=== PATIENT | female | born 1995 | race Two or more races ===

== ENCOUNTER 2024-05-24 12:59 | Emergency (ER) | payer MEDICAID, OTHER ==
[~2024-05-24] VITALS: Ht 162.6 cm; Wt 48.8 kg
[2024-05-24 13:36] VITALS: BP 109/50; PULSE 97; RESP 16; O2SAT 99
== END 2024-05-24 13:52 | disposition home or self-care (01) ==
LOC: ER 12:59
DX: O26.892 Other specified pregnancy related conditions, second trimester (principal); R10.2 Pelvic and perineal pain; Z3A.21 21 weeks gestation of pregnancy
CPT/HCPCS: 36415; 84702

== ENCOUNTER 2024-05-24 13:55 | Observation (INO) | payer MEDICAID ==
[~2024-05-24] VITALS: Ht 160 cm; Wt 47.2 kg
[2024-05-24] MEDS ORDERED: TERBUTALINE SULFATE 1 MG/ML 1ML VIAL SC ONE (15:30)
[2024-05-24] MEDS: TERBUTALINE SULFATE 1 MG/ML 1ML VIAL SC SCH (15:32)
[2024-05-24] MEDS: LACTATED RINGER'S 1,000 ML IV ONE (15:32)
== END 2024-05-24 17:02 | disposition home or self-care (01) ==
LOC: LDRP 13:55
PROVIDERS: ADMIT Obstetrics & Gynecology; ATTEND Obstetrics & Gynecology
DX: O62.9 Abnormality of forces of labor, unspecified (principal); Z3A.21 21 weeks gestation of pregnancy
CPT/HCPCS: 59025; 76815; 81002; 96360; 96361; 96372; G0378; J3105